=== PATIENT | female | born 1955 | race Caucasian/White ===

== ENCOUNTER → 2023-08-22 08:07 | Outpatient (REF) | payer MEDICARE, OTHER, SELFPAY | LOC: HWRAD 08:07 | PROVIDERS: ATTENDING PHYSICIAN Internal Medicine | DX: R79.82 Elevated C-reactive protein (CRP) (principal); R52 Pain, unspecified; Z98.890 Other specified postprocedural states; R73.9 Hyperglycemia, unspecified | CPT/HCPCS: 71046 ==

== ENCOUNTER → 2023-09-02 08:03 | Outpatient (REF) | payer MEDICARE, OTHER, SELFPAY | LOC: HWRAD 08:03 | PROVIDERS: ATTENDING PHYSICIAN Internal Medicine | DX: R22.1 Localized swelling, mass and lump, neck (principal) | CPT/HCPCS: 70491; Q9967 ==

== ENCOUNTER 2023-09-14 06:12 | Day surgery (SDC) | payer MEDICARE, OTHER, SELFPAY ==
--- NOTE | 2023-09-07 15:59 | PTCARENOTE ---
Abnormal EKG on 05/19/23. Dr. Gonzalez aware. No intervention needed.
[2023-09-14] VITALS (13 sets, daily range): BP systolic 93–126; BP diastolic 42–74; BMI 24.3
[2023-09-14] MEDS: TYLENOL 1000 MG PO (08:20)
[2023-09-14] MEDS: CELEBREX 200 MG PO (08:20)
[2023-09-14 08:29] LABS: Glucose - Point of Care 136 mg/dl (70-99)
[2023-09-14] MEDS: NORMOSOL-R 1000 IV (08:29)
[2023-09-14 12:20] LABS: Glucose - Point of Care 213 mg/dl (70-99)
== END 2023-09-14 13:46 | disposition home or self-care (01) ==
LOC: SDS 06:12
PROVIDERS: ATTENDING PHYSICIAN Orthopaedic Surgery Hand Surgery; FAMILY PHYSICIAN Internal Medicine
DX: M75.121 Complete rotator cuff tear or rupture of right shoulder, not specified as traumatic (principal); M75.41 Impingement syndrome of right shoulder; M75.01 Adhesive capsulitis of right shoulder; G56.01 Carpal tunnel syndrome, right upper limb; M77.8 Other enthesopathies, not elsewhere classified; M25.711 Osteophyte, right shoulder
CPT/HCPCS: 29827; 29826; 26055 ×2; 64721; 23700; 29825; 82962; C1713

== ENCOUNTER → 2023-11-10 11:00 | Outpatient (REF) | payer MEDICARE, OTHER, SELFPAY | LOC: HWRAD 11:00 | PROVIDERS: ATTENDING PHYSICIAN Internal Medicine | DX: R39.15 Urgency of urination (principal); R33.9 Retention of urine, unspecified | CPT/HCPCS: 76770 ==

== ENCOUNTER → 2023-12-02 07:09 | Outpatient (REF) | payer MEDICARE, OTHER, SELFPAY | LOC: HWRCS 07:09 | PROVIDERS: ATTENDING PHYSICIAN Internal Medicine Cardiovascular Disease; FAMILY PHYSICIAN Internal Medicine | DX: E78.5 Hyperlipidemia, unspecified (principal); I47.10 Supraventricular tachycardia, unspecified; R94.39 Abnormal result of other cardiovascular function study | CPT/HCPCS: 93306 ==

== ENCOUNTER → 2023-12-15 08:19 | Outpatient (REF) | payer MEDICARE, OTHER, SELFPAY ==
[2023-12-15 09:49] LABS: % Basophils 0.7 % (0-2); % Eosinophils 3.4 % (0-6); % Immature Granulocytes 0.3 % (0-0.5); % Monocytes 6.9 % (1.7-9.3); % Neutrophils 61.7 % (42.2-75.2); Absolute Basophils 0.1 10^3/uL (0-0.2); Absolute Eosinophils 0.2 10^3/uL (0-0.7); Absolute Lymphocytes 1.9 10^3/uL (1.2-3.4); Absolute Monocytes 0.5 10^3/uL (0.1-0.6); Absolute Neutrophils 4.2 10^3/uL (1.4-6.5); Hematocrit 35.8 % (37.0-47.0); Hemoglobin 11.2 g/dL (12.0-16.0); Mean Corp Hgb Conc. 31.3 g/dL (33.0-37.0); Mean Corpuscular Hgb 24.1 pg (27.0-31.0); Mean Corpuscular Volume 77.2 fL (81.0-99.0); Mean Platelet Volume 9.1 fL (7.4-10.4); Nucleated Red Blood Cells % 0 %; Platelet Count 448 10^3/uL (130-400); Red Blood Cell Count 4.64 10^6/uL (4.20-5.40); Red Cell Dist. Width 14.8 % (11.5-14.5); White Blood Cell Count 6.9 10^3/uL (4.8-10.8)
[2023-12-15 10:16] LABS: Glycohemoglobin (HgbA1c) 6.9 % (4.0-5.6)
[2023-12-15 10:29] LABS: ALT (SGPT) 17 U/L (0-35); AST (SGOT) 19 U/L (14-36); Albumin 4.3 g/dl (3.5-5.0); Alkaline Phosphatase 101 U/L (38-126); Blood Urea Nitrogen 13 mg/dl (7-17); Calcium 9.6 mg/dl (8.4-10.2); Carbon Dioxide 27 mmol/L (22-30); Chloride 98 mmol/L (98-107); Glucose 131 mg/dl (70-99); HDL Cholesterol 72 mg/dl; LDL Cholesterol, Calculated 77 mg/dl; Potassium 5.2 mmol/L (3.5-5.1); Sodium 138 mmol/L (135-145); Total Bilirubin 0.4 mg/dl (0.2-1.3); Total Cholesterol 167 mg/dl (50-199); Total Protein 7.5 g/dl (6.3-8.2); Triglyceride 93 mg/dl (10-149); Very Low Density Lipoprotein 18 mg/dl (0-30); eGFR > 60.00
[2023-12-15 10:40] LABS: LDL Cholesterol, Direct 75 mg/dl; Vitamin D, 25-OH*** 40.8 ng/mL (30-80)
[2023-12-16 12:59] LABS: Iron 52 ug/dl (37-170)
[2023-12-16 13:09] LABS: Percent Saturation 16 % (20-50); Total Iron Binding Capacity 309 ug/dl (265-497)
[2023-12-16 13:17] LABS: Ferritin 63.2 ng/ml (11.1-264.0)
== END ==
LOC: HWLAB 08:19
PROVIDERS: ATTENDING PHYSICIAN Internal Medicine; REFERRING PHYSICIAN Obstetrics & Gynecology
DX: E78.2 Mixed hyperlipidemia (principal); E55.9 Vitamin D deficiency, unspecified; E11.9 Type 2 diabetes mellitus without complications; D64.9 Anemia, unspecified; D50.9 Iron deficiency anemia, unspecified
CPT/HCPCS: 36415; 80053; 80061; 82306; 82728; 83036; 83540; 83550; 83721; 85025

== ENCOUNTER → 2023-12-23 08:36 | Outpatient (REF) | payer MEDICARE, OTHER, SELFPAY ==
[2023-12-23 12:43] LABS: Urine Albumin Negative (Neg - Trace); Urine Bilirubin Negative (Negative); Urine Character Clear (Clear); Urine Color Straw; Urine Glucose Negative (Negative); Urine Ketone Negative (Negative); Urine Leukocyte Negative (Negative); Urine Nitrite Negative (Negative); Urine Occult Blood 1+ (Negative); Urine Urobilinogen Negative (Neg - 1+)
[2023-12-23 12:53] LABS: Urine Squamous Cell 0-2 /LPF (Few)
[2023-12-23 12:54] LABS: Urine White Cell 0-2 /HPF (0-5)
[2023-12-23 12:58] LABS: Erythrocyte Sed Rate 55 mm/hour (0-20)
[2023-12-23 13:24] LABS: TSH 1.51 uIU/ml (0.47-4.68)
[2023-12-23 14:55] LABS: Creatine Phosphokinase 53 U/L (30-135)
[2023-12-26 01:13] LABS: CCP Antibody IgG/IgA 8 Units (0-19)
== END ==
LOC: HWLAB 08:36
PROVIDERS: ATTENDING PHYSICIAN Student in an Organized Health Care Education/Training Program; FAMILY PHYSICIAN Internal Medicine; REFERRING PHYSICIAN Internal Medicine Hematology & Oncology
DX: E11.9 Type 2 diabetes mellitus without complications (principal); E55.9 Vitamin D deficiency, unspecified; I77.2 Rupture of artery; I77.6 Arteritis, unspecified; M13.0 Polyarthritis, unspecified; M25.611 Stiffness of right shoulder, not elsewhere classified; M25.612 Stiffness of left shoulder, not elsewhere classified; M25.651 Stiffness of right hip, not elsewhere classified; M25.652 Stiffness of left hip, not elsewhere classified; R53.83 Other fatigue; R79.82 Elevated C-reactive protein (CRP); N39.0 Urinary tract infection, site not specified
CPT/HCPCS: 36415; 81003; 81015; 82550; 84443; 85652; 86140; 86200; 86430; 87086

== ENCOUNTER → 2024-01-10 20:38 | Outpatient (REF) | payer MEDICARE, OTHER, SELFPAY | LOC: MRI 3T 20:38 | PROVIDERS: ATTENDING PHYSICIAN Orthopaedic Surgery; FAMILY PHYSICIAN Internal Medicine | DX: M25.562 Pain in left knee (principal) | CPT/HCPCS: 73721 ==

== ENCOUNTER → 2024-01-17 07:39 | Outpatient (REF) | payer MEDICARE, OTHER, SELFPAY | LOC: HWWDC 07:39 | PROVIDERS: ATTENDING PHYSICIAN Internal Medicine; REFERRING PHYSICIAN Obstetrics & Gynecology | DX: Z12.31 Encounter for screening mammogram for malignant neoplasm of breast (principal); M81.0 Age-related osteoporosis without current pathological fracture | CPT/HCPCS: 77063; 77067; 77080 ==

== ENCOUNTER → 2024-02-02 08:15 | Outpatient (REF) | payer MEDICARE, OTHER, SELFPAY ==
[2024-02-02 09:32] LABS: % Basophils 0.5 % (0-2); % Eosinophils 2.6 % (0-6); % Immature Granulocytes 0.3 % (0-0.5); % Lymphocytes 41.4 % (20.5-51.1); % Monocytes 6.3 % (1.7-9.3); % Neutrophils 48.9 % (42.2-75.2); Absolute Basophils 0.1 10^3/uL (0-0.2); Absolute Eosinophils 0.3 10^3/uL (0-0.7); Absolute Lymphocytes 3.9 10^3/uL (1.2-3.4); Absolute Monocytes 0.6 10^3/uL (0.1-0.6); Absolute Neutrophils 4.6 10^3/uL (1.4-6.5); Hematocrit 37.9 % (37.0-47.0); Hemoglobin 12.1 g/dL (12.0-16.0); Mean Corp Hgb Conc. 31.9 g/dL (33.0-37.0); Mean Corpuscular Hgb 25.5 pg (27.0-31.0); Mean Corpuscular Volume 79.8 fL (81.0-99.0); Mean Platelet Volume 9.5 fL (7.4-10.4); Nucleated Red Blood Cells % 0 %; Platelet Count 329 10^3/uL (130-400); Red Blood Cell Count 4.75 10^6/uL (4.20-5.40); Red Cell Dist. Width 17.3 % (11.5-14.5); White Blood Cell Count 9.5 10^3/uL (4.8-10.8)
[2024-02-02 10:02] LABS: C-Reactive Protein < 5.00 mg/L (0.0-10.00)
[2024-02-02 10:05] LABS: ALT (SGPT) 21 U/L (0-35); AST (SGOT) 17 U/L (14-36); Albumin 4.4 g/dl (3.5-5.0); Alkaline Phosphatase 71 U/L (38-126); Blood Urea Nitrogen 23 mg/dl (7-17); Calcium 9.5 mg/dl (8.4-10.2); Carbon Dioxide 30 mmol/L (22-30); Chloride 99 mmol/L (98-107); Glucose 123 mg/dl (70-99); Potassium 4.7 mmol/L (3.5-5.1); Sodium 140 mmol/L (135-145); Total Bilirubin 0.2 mg/dl (0.2-1.3); eGFR > 60.00
[2024-02-02 10:46] LABS: Erythrocyte Sed Rate 12 mm/hour (0-20)
== END ==
LOC: HWLAB 08:15
PROVIDERS: ATTENDING PHYSICIAN Student in an Organized Health Care Education/Training Program; FAMILY PHYSICIAN Internal Medicine; REFERRING PHYSICIAN Obstetrics & Gynecology
DX: I77.2 Rupture of artery (principal); M15.9 Polyosteoarthritis, unspecified; M35.3 Polymyalgia rheumatica; R31.29 Other microscopic hematuria; R63.4 Abnormal weight loss; R79.82 Elevated C-reactive protein (CRP); R79.89 Other specified abnormal findings of blood chemistry
CPT/HCPCS: 36415; 80053; 85025; 85652; 86140

== ENCOUNTER → 2024-04-05 08:40 | Outpatient (REF) | payer MEDICARE, OTHER, SELFPAY ==
[2024-04-05 12:16] LABS: % Basophils 0.9 % (0-2); % Eosinophils 2.7 % (0-6); % Immature Granulocytes 0.7 % (0-0.5); % Lymphocytes 39.7 % (20.5-51.1); % Monocytes 6.5 % (1.7-9.3); % Neutrophils 49.5 % (42.2-75.2); Absolute Basophils 0.1 10^3/uL (0-0.2); Absolute Eosinophils 0.2 10^3/uL (0-0.7); Absolute Immature Granulocytes 0.1 10^3/uL (0-0.05); Absolute Lymphocytes 3.1 10^3/uL (1.2-3.4); Absolute Monocytes 0.5 10^3/uL (0.1-0.6); Absolute Neutrophils 3.8 10^3/uL (1.4-6.5); Hematocrit 41.8 % (37.0-47.0); Hemoglobin 13.4 g/dL (12.0-16.0); Mean Corp Hgb Conc. 32.1 g/dL (33.0-37.0); Mean Corpuscular Hgb 26.8 pg (27.0-31.0); Mean Corpuscular Volume 83.6 fL (81.0-99.0); Mean Platelet Volume 9.4 fL (7.4-10.4); Nucleated Red Blood Cells % 0 %; Platelet Count 376 10^3/uL (130-400); Red Cell Dist. Width 16.3 % (11.5-14.5); White Blood Cell Count 7.7 10^3/uL (4.8-10.8)
[2024-04-05 12:31] LABS: ALT (SGPT) 20 U/L (0-35); AST (SGOT) 20 U/L (14-36); Albumin 4.2 g/dl (3.5-5.0); Alkaline Phosphatase 75 U/L (38-126); Blood Urea Nitrogen 18 mg/dl (7-17); Calcium 8.9 mg/dl (8.4-10.2); Carbon Dioxide 34 mmol/L (22-30); Chloride 98 mmol/L (98-107); Glucose 116 mg/dl (70-99); Potassium 4.5 mmol/L (3.5-5.1); Sodium 137 mmol/L (135-145); Total Bilirubin 0.3 mg/dl (0.2-1.3); Total Protein 6.7 g/dl (6.3-8.2); eGFR > 60.00
[2024-04-05 12:34] LABS: Urine Albumin Trace (Neg - Trace); Urine Bilirubin Negative (Negative); Urine Character Clear (Clear); Urine Color Yellow; Urine Glucose Negative (Negative); Urine Ketone Negative (Negative); Urine Leukocyte Negative (Negative); Urine Nitrite Negative (Negative); Urine Occult Blood 3+ (Negative); Urine Urobilinogen Negative (Neg - 1+); Urine pH 6.5 (5.0-9.0)
[2024-04-05 13:56] LABS: Urine Mucus Moderate
[2024-04-05 13:58] LABS: Urine Amorphous Seen; Urine Urothelial Cell 0-2 /LPF (FEW)
[2024-04-05 13:59] LABS: Urine White Cell 0-2 /HPF (0-5)
[2024-04-05 14:20] LABS: Erythrocyte Sed Rate 6 mm/hour (0-20)
[2024-04-05 14:44] LABS: Protein/creatinine Ratio 0.1; Urine Protein 14 mg/dl
== END ==
LOC: HWLAB 08:40
PROVIDERS: ATTENDING PHYSICIAN Student in an Organized Health Care Education/Training Program; FAMILY PHYSICIAN Internal Medicine
DX: M35.3 Polymyalgia rheumatica (principal); M81.0 Age-related osteoporosis without current pathological fracture; R53.83 Other fatigue; R63.4 Abnormal weight loss; D64.89 Other specified anemias
CPT/HCPCS: 36415; 80053; 81003; 81015; 82570; 84156; 85025; 85652; 86140

== ENCOUNTER → 2024-05-10 08:28 | Outpatient (REF) | payer MEDICARE, OTHER, SELFPAY ==
[2024-05-10 11:01] LABS: ALT (SGPT) 20 U/L (0-35); AST (SGOT) 21 U/L (14-36); Albumin 4.2 g/dl (3.5-5.0); Alkaline Phosphatase 55 U/L (38-126); Blood Urea Nitrogen 17 mg/dl (7-17); Calcium 8.9 mg/dl (8.4-10.2); Carbon Dioxide 23 mmol/L (22-30); Chloride 102 mmol/L (98-107); Glucose 114 mg/dl (70-99); HDL Cholesterol 82 mg/dl; LDL Cholesterol, Calculated 71 mg/dl; Potassium 4.5 mmol/L (3.5-5.1); Sodium 136 mmol/L (135-145); Total Bilirubin 0.5 mg/dl (0.2-1.3); Total Cholesterol 186 mg/dl (50-199); Total Protein 6.7 g/dl (6.3-8.2); Triglyceride 166 mg/dl (10-149); Very Low Density Lipoprotein 33 mg/dl (0-30); eGFR > 60.00
[2024-05-10 11:48] LABS: Glycohemoglobin (HgbA1c) 7.1 % (4.0-5.6)
[2024-05-10 13:07] LABS: Microalbumin, Random Urine 3.1 mg/dl (0.6-1.7)
== END ==
LOC: HWLAB 08:28
PROVIDERS: ATTENDING PHYSICIAN Internal Medicine
DX: E11.9 Type 2 diabetes mellitus without complications (principal); E78.5 Hyperlipidemia, unspecified
CPT/HCPCS: 36415; 80053; 80061; 82043; 82570; 83036

== ENCOUNTER → 2024-05-24 09:04 | Outpatient (REF) | payer MEDICARE, OTHER, SELFPAY ==
[2024-05-24 09:57] LABS: % Basophils 0.5 % (0-2); % Eosinophils 2.1 % (0-6); % Immature Granulocytes 1.8 % (0-0.5); % Lymphocytes 15.5 % (20.5-51.1); % Monocytes 5.1 % (1.7-9.3); Absolute Basophils 0.1 10^3/uL (0-0.2); Absolute Eosinophils 0.3 10^3/uL (0-0.7); Absolute Immature Granulocytes 0.2 10^3/uL (0-0.05); Absolute Lymphocytes 1.9 10^3/uL (1.2-3.4); Absolute Monocytes 0.6 10^3/uL (0.1-0.6); Absolute Neutrophils 9.1 10^3/uL (1.4-6.5); Hematocrit 41.2 % (37.0-47.0); Hemoglobin 13.3 g/dL (12.0-16.0); Mean Corp Hgb Conc. 32.3 g/dL (33.0-37.0); Mean Corpuscular Hgb 28.4 pg (27.0-31.0); Mean Platelet Volume 9.4 fL (7.4-10.4); Nucleated Red Blood Cells % 0 %; Platelet Count 367 10^3/uL (130-400); Red Blood Cell Count 4.68 10^6/uL (4.20-5.40); Red Cell Dist. Width 14.4 % (11.5-14.5); White Blood Cell Count 12.2 10^3/uL (4.8-10.8)
[2024-05-24 10:31] LABS: ALT (SGPT) 19 U/L (0-35); AST (SGOT) 18 U/L (14-36); Alkaline Phosphatase 61 U/L (38-126); Blood Urea Nitrogen 22 mg/dl (7-17); Calcium 9.9 mg/dl (8.4-10.2); Carbon Dioxide 32 mmol/L (22-30); Chloride 99 mmol/L (98-107); Glucose 151 mg/dl (70-99); Sodium 138 mmol/L (135-145); Total Bilirubin 0.3 mg/dl (0.2-1.3); Total Protein 6.7 g/dl (6.3-8.2); eGFR > 60.00
[2024-05-24 10:56] LABS: Erythrocyte Sed Rate 2 mm/hour (0-20)
[2024-05-24 11:55] LABS: Albumin 4.2 g/dl (3.5-5.0)
== END ==
LOC: REG 09:04
PROVIDERS: ATTENDING PHYSICIAN Student in an Organized Health Care Education/Training Program; FAMILY PHYSICIAN Internal Medicine; OTHER PHYSICIAN Obstetrics & Gynecology; OTHER PHYSICIAN Urology
DX: E11.9 Type 2 diabetes mellitus without complications (principal); E55.9 Vitamin D deficiency, unspecified; I77.2 Rupture of artery; I77.6 Arteritis, unspecified; K57.32 Diverticulitis of large intestine without perforation or abscess without bleeding; M13.0 Polyarthritis, unspecified; M15.0 Primary generalized (osteo)arthritis; M15.9 Polyosteoarthritis, unspecified; M25.551 Pain in right hip; M25.611 Stiffness of right shoulder, not elsewhere classified; M25.651 Stiffness of right hip, not elsewhere classified; M25.652 Stiffness of left hip, not elsewhere classified; M35.3 Polymyalgia rheumatica; M75.121 Complete rotator cuff tear or rupture of right shoulder, not specified as traumatic; M79.18 Myalgia, other site; M81.0 Age-related osteoporosis without current pathological fracture; M85.80 Other specified disorders of bone density and structure, unspecified site; R20.2 Paresthesia of skin; R31.29 Other microscopic hematuria; R53.83 Other fatigue; R63.4 Abnormal weight loss; R79.82 Elevated C-reactive protein (CRP); R79.89 Other specified abnormal findings of blood chemistry; Z11.1 Encounter for screening for respiratory tuberculosis; Z11.59 Encounter for screening for other viral diseases
CPT/HCPCS: 36415; 80053; 85025; 85652; 86140

== ENCOUNTER 2024-06-06 07:26 | Outpatient (RCR) | payer MEDICARE, OTHER, SELFPAY | END 2024-06-06 23:59 | disposition home or self-care (01) | LOC: RPT 07:26 | PROVIDERS: ATTENDING PHYSICIAN Urology; FAMILY PHYSICIAN Internal Medicine | DX: N81.6 Rectocele (principal); N32.81 Overactive bladder; Z73.6 Limitation of activities due to disability; R32 Unspecified urinary incontinence; Z87.440 Personal history of urinary (tract) infections | CPT/HCPCS: 97110; 97161; 97530 ==

== ENCOUNTER → 2024-06-27 08:30 | Outpatient (REF) | payer MEDICARE, OTHER, SELFPAY ==
[2024-06-27 09:38] LABS: % Basophils 0.9 % (0-2); % Immature Granulocytes 0.3 % (0-0.5); % Lymphocytes 25.5 % (20.5-51.1); % Monocytes 6.9 % (1.7-9.3); % Neutrophils 63.4 % (42.2-75.2); Absolute Basophils 0.1 10^3/uL (0-0.2); Absolute Eosinophils 0.3 10^3/uL (0-0.7); Absolute Lymphocytes 2.3 10^3/uL (1.2-3.4); Absolute Monocytes 0.6 10^3/uL (0.1-0.6); Absolute Neutrophils 5.6 10^3/uL (1.4-6.5); Hematocrit 38.2 % (37.0-47.0); Hemoglobin 12.8 g/dL (12.0-16.0); Mean Corp Hgb Conc. 33.5 g/dL (33.0-37.0); Mean Corpuscular Volume 86.6 fL (81.0-99.0); Mean Platelet Volume 9.5 fL (7.4-10.4); Nucleated Red Blood Cells % 0 %; Platelet Count 392 10^3/uL (130-400); Red Blood Cell Count 4.41 10^6/uL (4.20-5.40); Red Cell Dist. Width 12.8 % (11.5-14.5); White Blood Cell Count 8.9 10^3/uL (4.8-10.8)
[2024-06-27 11:05] LABS: ALT (SGPT) 25 U/L (0-35); AST (SGOT) 23 U/L (14-36); Albumin 4.1 g/dl (3.5-5.0); Alkaline Phosphatase 56 U/L (38-126); Blood Urea Nitrogen 15 mg/dl (7-17); Calcium 9.3 mg/dl (8.4-10.2); Carbon Dioxide 29 mmol/L (22-30); Chloride 101 mmol/L (98-107); Glucose 120 mg/dl (70-99); Potassium 4.9 mmol/L (3.5-5.1); Sodium 139 mmol/L (135-145); Total Bilirubin 0.5 mg/dl (0.2-1.3); Total Protein 6.8 g/dl (6.3-8.2); eGFR > 60.00
[2024-06-27 12:06] LABS: Erythrocyte Sed Rate 22 mm/hour (0-20)
== END ==
LOC: HWLAB 08:30
PROVIDERS: ATTENDING PHYSICIAN Student in an Organized Health Care Education/Training Program; FAMILY PHYSICIAN Internal Medicine; OTHER PHYSICIAN Obstetrics & Gynecology; REFERRING PHYSICIAN Urology
DX: E11.9 Type 2 diabetes mellitus without complications (principal); E55.9 Vitamin D deficiency, unspecified; I77.2 Rupture of artery; I77.6 Arteritis, unspecified; K57.32 Diverticulitis of large intestine without perforation or abscess without bleeding; M13.0 Polyarthritis, unspecified; M15.0 Primary generalized (osteo)arthritis; M15.9 Polyosteoarthritis, unspecified; M25.551 Pain in right hip; M25.611 Stiffness of right shoulder, not elsewhere classified; M25.612 Stiffness of left shoulder, not elsewhere classified; M25.651 Stiffness of right hip, not elsewhere classified; M25.652 Stiffness of left hip, not elsewhere classified; M35.3 Polymyalgia rheumatica; M75.121 Complete rotator cuff tear or rupture of right shoulder, not specified as traumatic; M79.18 Myalgia, other site; M81.0 Age-related osteoporosis without current pathological fracture; M85.80 Other specified disorders of bone density and structure, unspecified site; R20.2 Paresthesia of skin; R31.29 Other microscopic hematuria; R53.83 Other fatigue; R63.4 Abnormal weight loss; R79.82 Elevated C-reactive protein (CRP); R79.89 Other specified abnormal findings of blood chemistry; Z11.1 Encounter for screening for respiratory tuberculosis; Z11.59 Encounter for screening for other viral diseases
CPT/HCPCS: 36415; 80053; 85025; 85652; 86140

== ENCOUNTER → 2024-07-24 09:04 | Outpatient (REF) | payer MEDICARE, OTHER, SELFPAY ==
[2024-07-24 12:31] LABS: % Basophils 0.8 % (0-2); % Immature Granulocytes 0.3 % (0-0.5); % Lymphocytes 28.8 % (20.5-51.1); % Monocytes 7.5 % (1.7-9.3); % Neutrophils 59.6 % (42.2-75.2); Absolute Basophils 0.1 10^3/uL (0-0.2); Absolute Eosinophils 0.2 10^3/uL (0-0.7); Absolute Lymphocytes 2.3 10^3/uL (1.2-3.4); Absolute Monocytes 0.6 10^3/uL (0.1-0.6); Absolute Neutrophils 4.7 10^3/uL (1.4-6.5); Hematocrit 39.5 % (37.0-47.0); Mean Corp Hgb Conc. 32.9 g/dL (33.0-37.0); Mean Corpuscular Hgb 28.5 pg (27.0-31.0); Mean Corpuscular Volume 86.6 fL (81.0-99.0); Mean Platelet Volume 9.5 fL (7.4-10.4); Nucleated Red Blood Cells % 0 %; Platelet Count 356 10^3/uL (130-400); Red Blood Cell Count 4.56 10^6/uL (4.20-5.40); Red Cell Dist. Width 12.9 % (11.5-14.5)
[2024-07-24 13:28] LABS: Erythrocyte Sed Rate 19 mm/hour (0-20)
[2024-07-24 13:58] LABS: ALT (SGPT) 19 U/L (0-35); AST (SGOT) 22 U/L (14-36); Albumin 4.6 g/dl (3.5-5.0); Alkaline Phosphatase 49 U/L (38-126); Blood Urea Nitrogen 13 mg/dl (7-17); Calcium 8.8 mg/dl (8.4-10.2); Carbon Dioxide 27 mmol/L (22-30); Chloride 106 mmol/L (98-107); Glucose 133 mg/dl (70-99); Potassium 4.2 mmol/L (3.5-5.1); Sodium 139 mmol/L (135-145); Total Bilirubin 0.6 mg/dl (0.2-1.3); Total Protein 7.1 g/dl (6.3-8.2); eGFR > 60.00
== END ==
LOC: HWLAB 09:04
PROVIDERS: ATTENDING PHYSICIAN Student in an Organized Health Care Education/Training Program; FAMILY PHYSICIAN Internal Medicine; REFERRING PHYSICIAN Obstetrics & Gynecology
DX: E11.9 Type 2 diabetes mellitus without complications (principal); E55.9 Vitamin D deficiency, unspecified; I77.2 Rupture of artery; I77.6 Arteritis, unspecified; K57.32 Diverticulitis of large intestine without perforation or abscess without bleeding; M13.0 Polyarthritis, unspecified; M15.0 Primary generalized (osteo)arthritis; M15.9 Polyosteoarthritis, unspecified; M25.551 Pain in right hip; M25.611 Stiffness of right shoulder, not elsewhere classified; M25.612 Stiffness of left shoulder, not elsewhere classified; M25.651 Stiffness of right hip, not elsewhere classified; M25.652 Stiffness of left hip, not elsewhere classified; M35.3 Polymyalgia rheumatica; M75.121 Complete rotator cuff tear or rupture of right shoulder, not specified as traumatic; M79.18 Myalgia, other site; M81.0 Age-related osteoporosis without current pathological fracture; M85.80 Other specified disorders of bone density and structure, unspecified site; R20.2 Paresthesia of skin; R31.29 Other microscopic hematuria; R53.83 Other fatigue; R63.4 Abnormal weight loss; R79.82 Elevated C-reactive protein (CRP); R79.89 Other specified abnormal findings of blood chemistry; Z11.1 Encounter for screening for respiratory tuberculosis; Z11.59 Encounter for screening for other viral diseases
CPT/HCPCS: 36415; 80053; 85025; 85652; 86140

== ENCOUNTER → 2024-10-15 08:08 | Outpatient (REF) | payer MEDICARE, OTHER, SELFPAY ==
[2024-10-15 10:10] LABS: C-Reactive Protein 12.50 mg/L (0.0-10.00)
== END ==
LOC: HWLAB 08:08
PROVIDERS: ATTENDING PHYSICIAN Student in an Organized Health Care Education/Training Program; FAMILY PHYSICIAN Internal Medicine
DX: E11.9 Type 2 diabetes mellitus without complications (principal); E55.9 Vitamin D deficiency, unspecified; H40.9 Unspecified glaucoma; Z79.52 Long term (current) use of systemic steroids
CPT/HCPCS: 36415; 85652; 86140

== ENCOUNTER → 2024-11-22 09:11 | Outpatient (REF) | payer MEDICARE, OTHER, SELFPAY ==
[2024-11-22 11:21] LABS: ALT (SGPT) 22 U/L (0-35); AST (SGOT) 21 U/L (14-36); Albumin 4.3 g/dl (3.5-5.0); Alkaline Phosphatase 55 U/L (38-126); Blood Urea Nitrogen 15 mg/dl (7-17); Calcium 9.2 mg/dl (8.4-10.2); Carbon Dioxide 30 mmol/L (22-30); Chloride 101 mmol/L (98-107); Glucose 132 mg/dl (70-99); HDL Cholesterol 78 mg/dl; LDL Cholesterol, Calculated 75 mg/dl; Potassium 4.8 mmol/L (3.5-5.1); Sodium 135 mmol/L (135-145); Total Protein 7.3 g/dl (6.3-8.2); Very Low Density Lipoprotein 22 mg/dl (0-30); eGFR > 60.00
[2024-11-22 12:57] LABS: Glycohemoglobin (HgbA1c) 7.2 % (4.0-5.6)
[2024-11-22 14:20] LABS: C-Reactive Protein 14.20 mg/L (0.0-10.00)
== END ==
LOC: REG 09:11
PROVIDERS: ATTENDING PHYSICIAN Internal Medicine; OTHER PHYSICIAN Student in an Organized Health Care Education/Training Program
DX: E11.9 Type 2 diabetes mellitus without complications (principal); R80.9 Proteinuria, unspecified; I10 Essential (primary) hypertension; E78.5 Hyperlipidemia, unspecified; E55.9 Vitamin D deficiency, unspecified; H40.9 Unspecified glaucoma; I77.2 Rupture of artery; I77.6 Arteritis, unspecified; K57.32 Diverticulitis of large intestine without perforation or abscess without bleeding; M13.0 Polyarthritis, unspecified; M15.0 Primary generalized (osteo)arthritis; M15.9 Polyosteoarthritis, unspecified; M25.551 Pain in right hip; M25.611 Stiffness of right shoulder, not elsewhere classified; M25.612 Stiffness of left shoulder, not elsewhere classified; M25.651 Stiffness of right hip, not elsewhere classified; M25.652 Stiffness of left hip, not elsewhere classified; M35.3 Polymyalgia rheumatica; M75.121 Complete rotator cuff tear or rupture of right shoulder, not specified as traumatic; M79.81 Nontraumatic hematoma of soft tissue; M81.0 Age-related osteoporosis without current pathological fracture; M85.80 Other specified disorders of bone density and structure, unspecified site; R20.2 Paresthesia of skin; R31.29 Other microscopic hematuria; R53.83 Other fatigue; R63.4 Abnormal weight loss; R79.82 Elevated C-reactive protein (CRP); R79.89 Other specified abnormal findings of blood chemistry; Z11.1 Encounter for screening for respiratory tuberculosis; Z11.59 Encounter for screening for other viral diseases; Z79.52 Long term (current) use of systemic steroids
CPT/HCPCS: 36415; 80053; 80061; 83036; 85652; 86140

== ENCOUNTER → 2025-01-03 08:20 | Outpatient (REF) | payer MEDICARE, OTHER, SELFPAY ==
[2025-01-03 10:50] LABS: C-Reactive Protein < 5.00 mg/L (0.0-10.00)
== END ==
LOC: HWLAB 08:20
PROVIDERS: ATTENDING PHYSICIAN Student in an Organized Health Care Education/Training Program; FAMILY PHYSICIAN Internal Medicine
DX: E11.9 Type 2 diabetes mellitus without complications (principal); E55.9 Vitamin D deficiency, unspecified; H40.9 Unspecified glaucoma; I77.2 Rupture of artery
CPT/HCPCS: 36415; 85652; 86140

== ENCOUNTER → 2025-01-17 07:27 | Outpatient (REF) | payer MEDICARE, OTHER, SELFPAY | LOC: HWWDC 07:27 | PROVIDERS: ATTENDING PHYSICIAN Internal Medicine | DX: Z12.31 Encounter for screening mammogram for malignant neoplasm of breast (principal) | CPT/HCPCS: 77063; 77067 ==

== ENCOUNTER → 2025-01-31 08:13 | Outpatient (REF) | payer MEDICARE, OTHER, SELFPAY ==
[2025-01-31 10:56] LABS: Blood Urea Nitrogen 15 mg/dl (7-17); Calcium 9.1 mg/dl (8.4-10.2); Carbon Dioxide 29 mmol/L (22-30); Chloride 98 mmol/L (98-107); Glucose 201 mg/dl (70-99); Potassium 4.4 mmol/L (3.5-5.1); Sodium 131 mmol/L (135-145); eGFR > 60.00
== END ==
LOC: HWLAB 08:13
PROVIDERS: ATTENDING PHYSICIAN Internal Medicine; REFERRING PHYSICIAN Student in an Organized Health Care Education/Training Program
DX: E11.9 Type 2 diabetes mellitus without complications (principal); R80.9 Proteinuria, unspecified; I10 Essential (primary) hypertension
CPT/HCPCS: 36415; 80048

== ENCOUNTER → 2025-02-14 09:37 | Outpatient (REF) | payer MEDICARE, OTHER, SELFPAY ==
[2025-02-14 11:18] LABS: C-Reactive Protein 34.80 mg/L (0.0-10.00)
== END ==
LOC: REG 09:37
PROVIDERS: ATTENDING PHYSICIAN Student in an Organized Health Care Education/Training Program; FAMILY PHYSICIAN Internal Medicine
DX: M35.3 Polymyalgia rheumatica (principal); R79.82 Elevated C-reactive protein (CRP); Z79.52 Long term (current) use of systemic steroids
CPT/HCPCS: 36415; 85652; 86140